=== PATIENT | male | born 1990 | race Caucasian/White ===

== ENCOUNTER 2016-08-23 14:31 | Emergency (ER) | payer BC, MEDICAID ==
[2016-08-23] MEDS ORDERED: Orphenadrine Citrate IV* 30 MG/ML 2 ML VIAL IV ONE (14:43)
[2016-08-23] MEDS ORDERED: Dexamethasone IV* 4 MG/ML 1 ML (4 MG) IV SLOW PU ONE (14:43)
--- NOTE | 2016-08-23 15:15 | RAD ---
INDICATION: Back pain COMPARISON: None TECHNIQUE: AP and lateral views were obtained . FINDINGS: Bones: There are no acute bony findings. There are no significant osteoarthritic findings. Alignment: Normal Disc spaces: The disc spaces are well-maintained Soft tissues: There are no soft tissue abnormalities. IMPRESSION: NO ACUTE BONY FINDINGS.
--- NOTE | 2016-08-23 16:16 | ED ---
Anne Marie Witt Janilya, scribed for Rafita Mccann MD on 08/23/16 at 1447 . Back Pain - HPI Summary HPI Summary: A 26 y/o male came in to [facility] presenting w/ a sudden onset of constant lower back pain starting Thursday, August 17, 2016. Pt states her normally has baseline lower back pain since the age of 19 or 20. It is comparatively much more manageable and occurs intermittently compared to his current pain. The current pain is more severe and constant. The pain does not radiate. In the morning, pain severity is 10/10. Now, it is 6/10. Pt also reports nausea. Pt denies vomiting, urinary Sx, testicular pain. - History of Current Complaint Chief Complaint: EDBackInjuryPain Stated Complaint: BACK PAIN Time Seen by Provider: 08/23/16 14:38 Hx Obtained From: Patient Onset/Duration: Sudden Onset, Lasting Days, Still Present Onset/Duration: Started Days Ago, Atraumatic, Still Present Timing: Constant Severity Initially: Moderate Severity Currently: Moderate Pain Intensity: 6 Pain Scale Used: 0-10 Numeric Aggravating Symptom(s): Nothing Alleviating Symptom(s): Nothing - Allergies/Home Medications Allergies/Adverse Reactions: Allergies Allergy/AdvReac Type Severity Reaction Status Date / Time Penicillins Allergy Rash Verified 08/23/16 14:44 PMH/Surg Hx/FS Hx/Imm Hx Previously Healthy: Yes EENT History: Denies: Hx Deafness Infectious Disease History: Denies: Traveled Outside the [place] in Last 30 Days - Family History Known Family History: Negative: Cardiac Disease, Hypertension, Diabetes - Social History Alcohol Use: Occasionally Hx Substance Use: Yes - former Substance Use Type: Reports: Heroin Hx Tobacco Use: No Review of Systems Positive: Nausea. Negative: Vomiting Genitourinary: Negative - pt denies other urinary Sx, Other - pt denies testicular pain Positive: Arthralgia - lower back pain, Myalgia - lower back pain All Other Systems Reviewed And Are Negative: Yes Physical Exam - Summary Physical Exam Summary: General: Patient is a well developed male without any distress that is laying comfortably in the stretcher. Skin: Turner, warm, dry HEAD AND FACE: No signs of trauma. EYES: PERRLA, EOMI x 2. EARS: Hearing grossly intact. MOUTH: Oropharynx within normal limits. NECK: Supple, trachea is midline, no adenopathy, no JVD. CHEST: Symmetric, no tenderness at palpation LUNGS: CTA bilaterally, no rales, rhonchi or wheezing CVS: RRR, no murmur, rub, or gallop ABDOMEN: soft and Nontender without masses, no guarding or rebound. Bowel sounds are active. No Hepato-splenomegaly. No signs of inguinal hernias. BACK: Patient walked into the ED room with symmetric ambulation, No signs of limping, antalgic, able to bear weight. No signs of trauma, no soft tissue or muscle tenderness, No spasm in the Paraspinal muscles of the (lumbar) spine. No masses palpated. No point tenderness , No CVAT, no flank ecchymosis . No sacroiliac notch tenderness, No saddle anesthesia ROM: flexion/ extension/ lateral bending and rotation, note if limited or causes pain Straight Leg Raise: negative Patellar reflexes: brisk, symmetric Muscle strength lower extremities. Dorsiflexion/ plantar flexion of ankles. Heel/ toe walk Lower extremities: Femoral, popliteal, posterior tibial, and pedal pulses with in normal, Rectal: Patient refused the exam. Triage Information Reviewed: Yes Vital Signs On Initial Exam: Initial Vitals Temp Pulse Resp BP Pulse Ox 99 F 84 20 118/70 100 08/23/16 14:33 08/23/16 14:33 08/23/16 14:33 08/23/16 14:33 08/23/16 14:33 Vital Signs Reviewed: Yes Diagnostics - Vital Signs Vital Signs Temp Pulse Resp BP Pulse Ox 08/23/16 14:33 99 F 84 20 118/70 100 - Laboratory Lab Statement: Any lab studies that have been ordered have been reviewed, and results considered in the medical decision making process. - Radiology lumbar spine xray Xray Interpretation: No Acute Changes - IMPRESSION: No acute bony findings Radiology Interpretation Completed By: Radiologist Back Pain Course/Dx - Course Assessment/Plan: 26 y/o M with no distress at arrival. Patient is able to ambulate to treatment area without assistance, or arrived by wheelchair, stretcher, or ambulance. In the ED patient is lying in the stretcher without distress. There are no red flags identified. Patient has no Urinary or bowel dysfunction. At this point I have no suspicion for Kidney stones since patient has no hematuria and no flank tenderness. No ACS since patient has a normal EKG and no chest pain. No AAA since all pulses are equal and have no pulsating masses in the abdomen. No Infection (discitis, transverse myelitis, epidural abscess or hematoma) since there are no persistent fevers, no hx of IVDA, recent bacterial infection. No concern for Cauda Equina since there is no bilateral lower extremity pain, weakness, numbness; urinary retention followed by overflow; perineal or perianal anesthesia or poor rectal tone, nor progressive neurological deficits. In ED he was given: Norflex and Decadron. EMS gave Toradol for pain. Symptoms improved after medications. After medications: ROM and he is able to stand erect. Normal flexion, extension, lateral bending and rotation without limitation but minimal complaint of pain. Heel and toe walk with good strength. Dorsi-and plantar flexion with adequate/ diminished strength. X-RAY INTERPRETATION by radiology: No acute fracture or dislocation. At this point I discussed all the findings and test results with the patient. Patient was instructed to return to the emergency room immediately if any of the symptoms return or worsens. Patient understands and agrees. Patient is able to ambulate freely w/o aid or limp in the ER. Plan of care was discussed with the patient and patient understands and agrees. All questions were answered at patient satisfaction. There were no further complaints or concerns. Neurological exam before discharge: Patient is alert and oriented x 3. No acute neurological deficits. Patient is hemodynamically stable. Patient is to follow up with primary care physician in the next 2 3 days. He understands and agrees. - Diagnoses Differential Diagnosis/HQI/PQRI: Positive: Arthritis, Fracture, Herniated Disc, Strain, Sprain Provider Diagnoses: Lumbar pain Discharge - Discharge Plan Condition: Stable Disposition: HOME Prescriptions: Cyclobenzaprine TAB* [Flexeril 10 MG TAB*] 10 mg PO TID PRN #9 tab PRN Reason: Pain Ibuprofen TAB* [Motrin TAB* 600 MG] 600 mg PO Q8H PRN #20 tab PRN Reason: Pain Methylprednisolone [Medrol Dosepak 4 MG*] 4 mg PO .SEE CARLOS INSTRUCTION #1 carlos Patient Education Materials: Low Back Strain (ED) Referrals: Avtar Rendon MD [Primary Care Provider] - 2 Days The documentation as recorded by the scribe, Baizack,Janilya accurately reflects the service I personally performed and the decisions made by me, Rafita Mccann MD.
[2016-08-23 16:51] VITALS: BP 108/67
== END 2016-08-23 16:10 | disposition home or self-care (01) ==
LOC: ED 14:31
DX: M54.5 Low back pain (principal)
CPT/HCPCS: 72100; 96374; 96375; 99283; J1100; J2360

== ENCOUNTER 2016-08-31 18:59 | Emergency (ER) | payer OTHER ==
[2016-08-31] MEDS ORDERED: Ketorolac INJ* 60 MG/2 ML VIAL IM ONE (20:44)
[2016-08-31] MEDS ORDERED: Diazepam TAB(*) 5 MG PO ONE (20:44)
[2016-08-31 21:05] VITALS: BP 134/70
--- NOTE | 2016-08-31 21:10 | ED ---
Back Pain - HPI Summary HPI Summary: Patient presents with acute on chronic low back pain with muscle spasms. He was seen at this ED a week ago for the same. He sustained an injury as a teenager that has plagued him for years. He is at [facility] and they can not provide any medical relief. He denies N/T, incontinence of urine or stool, and no new injury. His pain is worst when he wakes in the AM and improves through the day with movement. - History of Current Complaint Chief Complaint: EDBackInjuryPain Stated Complaint: BACK PAIN Time Seen by Provider: 08/31/16 20:19 Hx Obtained From: Patient Onset/Duration: Gradual Onset, Lasting Weeks, Still Present Onset/Duration: Started Days Ago, Atraumatic Timing: Constant Back Pain Location: Is Discrete @ - bilateral SI Severity Initially: Moderate Severity Currently: Severe Pain Intensity: 7 Character: Dull, Aching, Stiffness Aggravating Symptom(s): Movement Alleviating Symptom(s): Nothing Associated Signs And Symptoms: Positive: Pain with Weight Bearing Related History: Previous Back Injury - Allergies/Home Medications Allergies/Adverse Reactions: Allergies Allergy/AdvReac Type Severity Reaction Status Date / Time Penicillins Allergy Rash Verified 08/23/16 14:44 PMH/Surg Hx/FS Hx/Imm Hx Musculoskeletal History: Reports: Hx Back Problems Sensory History: Denies: Hx Deafness Psychiatric History: Reports: Hx Substance Abuse Infectious Disease History: No Infectious Disease History: Denies: Traveled Outside the [place] in Last 30 Days - Family History Known Family History: Negative: Cardiac Disease, Hypertension, Diabetes - Social History Occupation: Unemployed Lives: With Family Alcohol Use: Occasionally Hx Substance Use: Yes - former Substance Use Type: Reports: Heroin Substance Use Comment - Amount & Last Used: 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 Hx Tobacco Use: No Smoking Status (MU): Light Every Day Tobacco Smoker Cessation Counseling: Patient Advised to Stop Review of Systems Negative: Abdominal Pain Positive: Myalgia. Negative: Edema Negative: Weakness, Paresthesia, Numbness All Other Systems Reviewed And Are Negative: Yes Physical Exam Vital Signs On Initial Exam: Initial Vitals Temp Pulse Resp BP Pulse Ox 98.3 F 94 16 127/75 100 08/31/16 19:00 08/31/16 19:00 08/31/16 19:00 08/31/16 19:00 08/31/16 19:00 Diagnostics - Vital Signs Vital Signs Temp Pulse Resp BP Pulse Ox 08/31/16 21:06 15 08/31/16 20:59 98.7 F 96 16 134/70 99 08/31/16 19:00 98.3 F 94 16 127/75 100 - Laboratory Lab Statement: Any lab studies that have been ordered have been reviewed, and results considered in the medical decision making process. Discharge - Discharge Plan Condition: Stable Disposition: HOME Prescriptions: Diazepam TAB(*) [Valium TAB(*)] 5 mg PO TID PRN #15 tab MDD 3 PRN Reason: Pain Ketorolac TAB (NF) [Toradol TAB (NF)] 10 mg PO Q6H #9 tab Patient Education Materials: Chronic Back Pain (ED) Referrals: Avtar Rendon MD [Primary Care Provider] - Additional Instructions: Please use the medication provided to help decrease your pain. Follow-up with the provider at [facility] to see if they can help as well.
== END 2016-08-31 21:31 | disposition home or self-care (01) ==
LOC: ED 18:59
DX: M54.9 Dorsalgia, unspecified (principal)
CPT/HCPCS: 96372; 99282; A9270-GY; J1885